=== PATIENT | female | born 1985 ===

== ENCOUNTER 2017-12-17 12:48 | Emergency (ER) | payer OTHER ==
[2017-12-17 12:48] VITALS: BMI 20.1
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
[2017-12-17] MEDS ORDERED: Sodium Chloride 0.9% 1,000 ML IV STA ×2 (13:55→15:27)
[2017-12-17 15:50] LABS: HEMOGLOBIN 13.6 g/dL (12.0-16.0); MEAN CORPUSCULAR HEMOGLOBIN 30.8 pg (27.0-31.0); MEAN CORPUSCULAR HGB CONC 33.9 g/dL (33.0-37.0); RBC 4.4 Mil/uL (3.80-5.20); RED CELL DISTRIBUTION WIDTH 12.6 % (11.5-14.5); WHITE BLOOD COUNT 8.4 K/uL (4.8-10.8)
--- NOTE | 2017-12-17 15:57 | RAD ---
Date of service: 12/17/2017 HISTORY: palpitations COMPARISON: No prior. FINDINGS: LUNGS: No active pulmonary disease. PLEURA: No significant pleural effusion identified, no pneumothorax apparent. CARDIOVASCULAR: Normal. OSSEOUS STRUCTURES: No significant abnormalities. VISUALIZED UPPER ABDOMEN: Normal. OTHER FINDINGS: None. IMPRESSION: No active disease.
[2017-12-17 15:58] LABS: ALB/GLOB RATIO 1.3 (1.0-2.1); ALBUMIN 4.9 g/dL (3.5-5.0); ALT/SGPT 22 U/L (9-52); AST/SGOT 35 U/L (14-36); BLOOD UREA NITROGEN 13 mg/dl (7-17); CALCIUM 9.8 mg/dL (8.4-10.2); GFR NON-AFRICAN AMERICAN > 60
[2017-12-17 16:12] LABS: BARBITURATES, UR NEGATIVE (NEGATIVE)
[2017-12-17 16:14] LABS: BENZODIAZEPINES, UR POSITIVE (NEGATIVE); OPIATES, UR POSITIVE (NEGATIVE); PHENCYCLIDINE, UR NEGATIVE (NEGATIVE)
[2017-12-17 17:29] VITALS: RESP 18; O2SAT 100
[2017-12-18 00:32] VITALS: BP 130/81; PULSE 88; TEMP 98.1
--- NOTE | 2017-12-18 07:04 | CARD ---
APPROVED REPORT Date of service: 12/17/2017 EKG Measurement Heart [id number] [place] [id number] <Conclusion> Sinus tachycardia Possible Left atrial enlargement Borderline ECG
== END 2017-12-17 18:00 | disposition home or self-care (01) ==
LOC: H.ER 12:48
DX: F12.90 Cannabis use, unspecified, uncomplicated (principal); R00.2 Palpitations; F41.9 Anxiety disorder, unspecified
CPT/HCPCS: 71045; 80053; 80320; 80324; 80345; 80346; 80349; 80353; 80358; 80361; 81025; 83992; 84484; 85027; 93005; 99283; J7030